=== PATIENT | female | born 1995 | race Caucasian/White ===

== ENCOUNTER 2016-08-19 10:50 | Emergency (ER) | payer OTHER ==
[~2016-08-19] VITALS: Wt 70.0 kg
[~2016-08-19 10:50] MED LIST: PREN-39 PO
[2016-08-19 11:25] LABS: URINE BLOOD (Dip) POC 1+ (NEGATIVE)
--- NOTE | 2016-08-19 12:12 | RADRPT ---
PROCEDURE: XR Abdomen CLINICAL INDICATION: Pelvic pain, IUD movement TECHNIQUE: An AP supine radiograph of the abdomen was submitted. COMPARISON: None FINDINGS: It T-shaped IUD projects fairly high within the pelvis. The bowel gas pattern is nonspecific. No organomegaly or discrete mass is identified. No pathological calcification is identified. The osseous elements appear unremarkable. IMPRESSION: 1. An IUD projects high within the pelvis. Correlation with pelvic sonography may be useful to dete rmine whether the IUD is extrauterine. 2. Otherwise, nonspecific abdomen. Physician Art Date Time Electronically viewed and signed by Physician Art on 08/19/2016 12:12 /
--- NOTE | 2016-08-19 12:27 | RADRPT ---
PROCEDURE: Pelvic Ultrasound. CLINICAL INDICATION: Pelvic pain TECHNIQUE: Sonographic evaluation of the pelvis was performed utilizing transabdominal and transva ginal technique. Curved array transabdominal transducer technique was utilized as was an endovagin al probe. Images were reviewed on the high-resolution PACS workstation. COMPARISON: No prior studies are available for comparison. FINDINGS: The uterus is normal measuring 6.1 x 3.4 x 4.6 cm in dimension. No uterine masses are identified. The endometrium is thin and normal measuring 4.4 mm. No intrauterine contraceptive device is identi fied. There is normal flow within the right ovary. The left ovary is not visualized. The right ovary is normal measuring 1.7 x 1.0 x 1.1 cm. There are no adnexal masses. No free fluid is seen. IMPRESSION: 1. Nonvisualization of the left ovary. 2. Otherwise unremarkable pelvic ultrasound. RPTAT: KK .Luciano Pang MD, Date Time Electronically viewed and signed by .Luciano Pang MD, MD on 08/19/2016 12:26 .B/
[2016-08-19] MEDS ORDERED: IBUPROFEN 600 MG TAB PO ONE (13:00)
--- NOTE | 2016-08-19 13:23 | RADRPT ---
PROCEDURE: CT Abdomen and Pelvis without contrast. CLINICAL INDICATION: Pelvic pain. TECHNIQUE: Routine tomographic images of the abdomen and pelvis were obtained from the domes of th e diaphragm to the symphysis pubis. The patient was scanned withoutoral or intravenous contrast. C oronal and sagittal reformatted images were obtained from the axial source images. Images were revie wed on a high-resolution PACS workstation. The total exam CTDI equals 16.84 mGy and the total exam D LP equals 969.22 mGy-cm. One or more of the following dose reduction techniques were used: Automat ed exposure control, adjustment of the mA and / or kV according to patient size, or use of iterative reconstruction technique. COMPARISON: Pelvic ultrasound and x-ray abdomen performed earlier on the same date FINDINGS: The visualized portions of the lung bases are clear. Evaluation of the intra-abdominal solid org ans is limited on this noncontrast examination. The liver appears normal in size. There is no intr a or extrahepatic biliary dilatation. The gallbladder is contracted. The spleen, pancreas, and adr enal glands are unremarkable. The kidneys are symmetric in size. No renal, ureteral, or bladder calculi are identified. No perine phric inflammatory changes are identified. The urinary bladder is grossly unremarkable. The bowel demonstrates normal course and caliber. There is no evidence of bowel obstruction. The appendix is normal in appearance. No intraperitoneal free fluid, free air or abscess is identified. There is an intrauterine device in the mid abdomen anteriorly. The uterus and adnexa are unremark able. The aorta is normal in caliber. No retroperitoneal, mesenteric, or inguinal lymphadenopathy is identified. The osseous structures are unremarkable. No significant subcutaneous soft tissue abnormalities are seen. IMPRESSION: 1. Extrauterine location of IUD located within the anterior mid abdomen. 2. Otherwise, unremarkable noncontrast CT of the abdomen pelvis. Findings were discussed with JOJO Iyer on 08/19/2016 1:19:35 PM. RPTAT: HH .Gena Louis MD, Date Time Electronically viewed and signed by .Gena Louis MD, on 08/19/2016 13:23 .G/
[2016-08-19] MEDS ORDERED: SOD CHLORIDE 0.9% 1,000 ML IV STA (13:28)
[2016-08-19] MEDS ORDERED: morphine 4 MG/ML VIAL IV STA (13:30)
[2016-08-19] MEDS ORDERED: ONDANSETRON 4 MG INJ IV STA (13:30)
[2016-08-19 13:54] LABS: ADD SCAN DIFF NO; BASOPHILS % 0.4 % (0.0-2.0); EOSINOPHILS % 0.8 % (0.0-7.0); HEMATOCRIT 41.1 % (37.0-47.0); HEMOGLOBIN 12.6 g/dl (12.0-16.0); LYMPHOCYTES # 2.1 10^3/ul (0.8-2.9); LYMPHOCYTES % 40.2 % (15.0-51.0); MEAN CORPUSCULAR HEMOGLOBIN 25.1 pg (29.0-33.0); MEAN CORPUSCULAR HGB CONC 30.7 g/dl (32.0-37.0); MEAN CORPUSCULAR VOLUME 81.9 fl (82.0-101.0); MEAN PLATELET VOLUME 11.8 fl (7.4-10.4); MONOCYTE # 0.3 10^3/ul (0.3-0.9); MONOCYTES % 5.5 % (0.0-11.0); NEUTROPHIL # 2.7 10^3/ul (1.6-7.5); NEUTROPHILS % 52.9 % (39.0-77.0); PLATELET COUNT 218 10^3/UL (140-415); RED BLOOD COUNT 5.02 10^6/ul (4.20-5.40); RED CELL DISTRIBUTION WIDTH 15.6 % (11.5-14.5); WHITE BLOOD COUNT 5.1 10^3/ul (4.8-10.8)
[2016-08-19 14:04] LABS: INR 0.95; PROTIME 12.7 Sec (12.2-14.2)
[2016-08-19 14:05] LABS: PARTIAL THROMBOPLASTIN TIME 30.8 Sec (25.0-35.0)
[2016-08-19 14:10] LABS: CHLORIDE 104 mmol/L (97-110)
[2016-08-19 14:11] LABS: POTASSIUM 3.8 mmol/L (3.5-5.1); SODIUM 145 mmol/L (135-144)
[2016-08-19 14:14] LABS: ANION GAP 18 (8-16); BLOOD UREA NITROGEN 10 mg/dl (7-20); CARBON DIOXIDE 27 mmol/L (21-31); CREATININE 0.65 mg/dl (0.44-1.00); GLUCOSE 91 mg/dl (70-220)
--- NOTE | 2016-08-19 14:14 | RADRPT ---
PROCEDURE: Chest Radiograph. CLINICAL INDICATION: Abdominal pain. TECHNIQUE: Single frontal chest radiograph. COMPARISON: Chest radiograph 02/13/2013 FINDINGS: The cardiomediastinal silhouette is within normal limits. No infiltrate or effusion is seen. Th e bones are intact. IMPRESSION: 1. Unremarkable chest radiograph. RPTAT: KK .Luciano Pang MD, MD Date Time Electronically viewed and signed by .Luciano Pang MD, on 08/19/2016 14:13 .B/
[2016-08-19 14:15] LABS: CALCIUM 9.3 mg/dl (8.4-10.2)
[2016-08-19 14:28] LABS: TROPONIN-I < 0.012 ng/ml (0.00-0.12)
[2016-08-19] MEDS ORDERED: ONDANSETRON 4 MG INJ IV PRN (14:30)
[2016-08-19] MEDS ORDERED: ACETAMINOPHEN 325 MG TAB PO PRN (14:30)
[2016-08-19] MEDS ORDERED: IBUP-1542 PO (14:45)
[2016-08-19] MEDS ORDERED: HYDR-906 PO (14:45)
[2016-08-19] MEDS ORDERED: ONDA4TAB14 PO (14:46)
[2016-08-19 15:00] VITALS: BP 110/65; PULSE 62; RESP 18; TEMP 98.4
--- NOTE | 2016-08-22 09:28 | ERD ---
ER Documentation Chief Complaint Date/Time DATE: 08/22/16 TIME: 09:03 Chief Complaint intermittent bleeding from iud migrated. pain for a few wks. HPI Patient is a 21 year old female who presents to the emergency department with pelvic pain. Patient states that her pain has been present for the last 3-4 weeks, however it is getting worse. Patient states her pain is episodic and crampy in nature. Patient denies any vaginal bleeding or vaginal discharge. Patient reports chills, denies any fever. Patient reports nausea, denies vomiting. Patient states that she had an IUD approximately 2 months ago. Patient states she went to her clinic where they did an ultrasound, which did not show the IUD. Patient reports irregular menstrual periods. ROS All systems reviewed and are negative except as per history of present illness. Medications Home Meds Active Scripts Ondansetron (Ondansetron Odt) 4 Mg Tab.rapdis, 4 MG PO Q6H Y for NAUSEA AND/OR VOMITING, #10 TAB Prov:RAKESH CHOI PA-C 08/19/16 Ibuprofen* (Motrin*) 600 Mg Tab, 600 MG PO Q6, #30 TAB Prov:RAKESH CHOI PA-C 08/19/16 Hydrocodone/Acetaminophen (Asher 5-325 Tablet) 1 Each Tablet, 1 TAB PO Q6H Y for PAIN, #7 TAB Prov:RAKESH CHOI PA-C 08/19/16 Reported Medications Vits W-Ca,Fe,Fa(<1MG) ( Vitamins) 1 Tab Tablet, 1 TAB PO DAILY , TAB 11/19/15 Allergies Allergies: Coded Allergies: No Known Allergy (Unverified , 01/29/16) PMhx/Soc History of Surgery: No Anesthesia Reaction: No Hx Neurological Disorder: No Hx Respiratory Disorders: No Hx Cardiac Disorders: No Hx Psychiatric Problems: No Hx Miscellaneous Medical Probl: No Hx Alcohol Use: No Hx Substance Use: No Hx Tobacco Use: No Physical Exam Vitals Vital Signs Date Time Temp Pulse Resp B/P Pulse Ox O2 Delivery O2 Flow Rate FiO2 08/19/16 15:00 98.4 62 18 110/65 100 Room Air 08/19/16 10:53 98.9 78 21 136/85 100 Physical Exam GENERAL: Well-developed, well-nourished female. Appears in no acute distress. HEAD: Normocephalic, atraumatic. EYES: Pupils are equally reactive bilaterally. EOMs grossly intact. No conjunctival erythema. ENT: Moist mucous membranes. No uvula deviation. No kissing tonsils. NECK: Supple. No lymphadenopathy or thyromegaly. No meningismus. LUNG: Clear to auscultation bilaterally. No rhonchi, wheezing, rales or coarse breath sounds. HEART: Regular rate and rhythm. No murmurs, rubs or gallops. ABDOMEN: No scars, ecchymosis or rashes noted. Soft and nondistended. Tender to palpation in lower abdomen bilaterally and suprapubic region. Positive bowel sounds in all four quadrants.~No rebound tenderness, no guarding. (-) McBurney s point tenderness. No CVA tenderness. BACK: No midline tenderness. Extremities: Equal pulses bilaterally. No peripheral clubbing, cyanosis or edema. No unilateral leg swelling. NEUROLOGIC: Alert and oriented. Moving all four extremities. 5/5 strength in all extremities. Normal speech. Steady gait. SKIN: Normal color. Warm and dry. No rashes or lesions. Result Diagram: 08/19/16 1342 08/19/16 1342 Results 24 hrs Laboratory Tests Test 08/19/16 11:23 08/19/16 13:42 Bedside Urine Blood 1+ Bedside Urine Glucose (UA) Negative Bedside Urine Ketones (LAB) Negative Bedside Urine Leukocyte Esterase (L Negative Bedside Urine Nitrite (LAB) Negative Bedside Urine Protein (LAB) Negative Bedside Urine pH (LAB) 7.5 Activated Partial Thromboplast Time 30.8Sec Anion Gap 18 Basophils # 0.010^3/ul Basophils % 0.4% Blood Urea Nitrogen 10mg/dl Calcium Level 9.3mg/dl Carbon Dioxide Level 27mmol/L Chloride Level 104mmol/L Creatinine 0.65mg/dl Eosinophils # 0.010^3/ul Eosinophils % 0.8% Glucose Level 91mg/dl Hematocrit 41.1% Hemoglobin 12.6g/dl INR International Normalized Ratio 0.95 Lymphocytes # 2.110^3/ul Lymphocytes % 40.2% Mean Corpuscular Hemoglobin 25.1pg Mean Corpuscular Hemoglobin Concent 30.7g/dl Mean Corpuscular Volume 81.9fl Mean Platelet Volume 11.8fl Monocytes # 0.310^3/ul Monocytes % 5.5% Neutrophils # 2.710^3/ul Neutrophils % 52.9% Nucleated Red Blood Cells # 0.010^3/ul Nucleated Red Blood Cells % 0.0/100WBC Platelet Count 64251^3/UL Potassium Level 3.8mmol/L Prothrombin Time 12.7Sec Prothrombin Time Ratio 1.0 Red Blood Count 5.0210^6/ul Red Cell Distribution Width 15.6% Sodium Level 145mmol/L Troponin I < 0.012ng/ml White Blood Count 5.110^3/ul Current Medications Medications (Trade) Dose Ordered Sig/Ji Route PRN Reason Start Time Stop Time Status Last Admin Dose Admin Ibuprofen 600 mg 600 mg ONCE ONCE PO 08/19/16 13:00 08/19/16 13:01 DC 08/19/16 12:44 Sodium Chloride (NS) 1,000 ml @ 1,000 mls/hr Q1H STAT IV 08/19/16 13:28 08/19/16 14:27 DC 08/19/16 13:55 Ondansetron HCl (Zofran Inj) 4 mg ONCE STAT IV 08/19/16 13:30 08/19/16 13:32 DC 08/19/16 13:55 Morphine Sulfate (morphine) 4 mg ONCE STAT IV 08/19/16 13:30 08/19/16 13:32 DC 08/19/16 13:55 Ondansetron HCl (Zofran Inj) 4 mg BRIDGE ORDER PRN IV NAUSEA AND/OR VOMITING 08/19/16 14:30 08/19/16 15:35 DC Acetaminophen (Tylenol Tab) 650 mg ER BRIDGE PRN PO MILD PAIN/FEVER 08/19/16 14:30 08/19/16 15:35 DC Procedures/MDM ED COURSE: The patient was stable throughout ED course. I kept the patient and/or family informed of laboratory and diagnostic imaging results throughout the ED course. EKG: Read by Dr. Restrepo, attending physician. EKG shows normal sinus rhythm at a rate of 70 bpm No arrhythmias, acute ST elevations or T wave changes were noted. DIAGNOSTIC IMAGING: Read by radiologist. Patient: DIAN CABRERA : 1995 Age: 21 Sex: F MR #: [id number] DOS: 08/19/16 1107 Ordering MD: RAKESH CHOI PA-C Location: [facility] Room/Bed: PROCEDURE: Pelvic Ultrasound. CLINICAL INDICATION: Pelvic pain TECHNIQUE: Sonographic evaluation of the pelvis was performed utilizing transabdominal and transvaginal technique. Curved array transabdominal transducer technique was utilized as was an endovaginal probe. Images were reviewed on the high-resolution PACS workstation. COMPARISON: No prior studies are available for comparison. FINDINGS: The uterus is normal measuring 6.1 x 3.4 x 4.6 cm in dimension. No uterine masses are identified. The endometrium is thin and normal measuring 4.4 mm. No intrauterine contraceptive device is identified. There is normal flow within the right ovary. The left ovary is not visualized. The right ovary is normal measuring 1.7 x 1.0 x 1.1 cm. There are no adnexal masses. No free fluid is seen. IMPRESSION: 1. Nonvisualization of the left ovary. 2. Otherwise unremarkable pelvic ultrasound. RPTAT: KK .Luciano Pang MD, MD Date Time Electronically viewed and signed by .Luciano Pang MD, MD on 2016 12:26 Patient: DIAN CABRERA : 1995 Age: 21 Sex: F MR #: [id number] DOS: 08/19/16 1107 Ordering MD: RAKESH CHOI PA-C Location: [facility] Room/Bed: PROCEDURE: XR Abdomen CLINICAL INDICATION: Pelvic pain, IUD movement TECHNIQUE: An AP supine radiograph of the abdomen was submitted. COMPARISON: None FINDINGS: It T-shaped IUD projects fairly high within the pelvis. The bowel gas pattern is nonspecific. No organomegaly or discrete mass is identified. No pathological calcification is identified. The osseous elements appear unremarkable. IMPRESSION: 1. An IUD projects high within the pelvis. Correlation with pelvic sonography may be useful to determine whether the IUD is extrauterine. 2. Otherwise, nonspecific abdomen. Physician Art Date Time Electronically viewed and signed by Physician Art on 08/19/2016 12:12 RH/ CC: RAKESH CHOI PA-C Patient: DIAN CABRERA : 1995 Age: 21 Sex: F MR #: [id number] DOS: 08/19/16 1241 Ordering MD: RAKESH CHOI PA-C Location: [facility] Room/Bed: PROCEDURE: CT Abdomen and Pelvis without contrast. CLINICAL INDICATION: Pelvic pain. TECHNIQUE: Routine tomographic images of the abdomen and pelvis were obtained from the domes of the diaphragm to the symphysis pubis. The patient was scanned withoutoral or intravenous contrast. Coronal and sagittal reformatted images were obtained from the axial source images. Images were reviewed on a high-resolution PACS workstation. The total exam CTDI equals 16.84 mGy and the total exam DLP equals 969.22 mGy-cm. One or more of the following dose reduction techniques were used: Automated exposure control, adjustment of the mA and / or kV according to patient size, or use of iterative reconstruction technique. COMPARISON: Pelvic ultrasound and x-ray abdomen performed earlier on the same date FINDINGS: The visualized portions of the lung bases are clear. Evaluation of the intra -abdominal solid organs is limited on this noncontrast examination. The liver appears normal in size. There is no intra or extrahepatic biliary dilatation. The gallbladder is contracted. The spleen, pancreas, and adrenal glands are unremarkable. The kidneys are symmetric in size. No renal, ureteral, or bladder calculi are identified. No perinephric inflammatory changes are identified. The urinary bladder is grossly unremarkable. The bowel demonstrates normal course and caliber. There is no evidence of bowel obstruction. The appendix is normal in appearance. No intraperitoneal free fluid, free air or abscess is identified. There is an intrauterine device in the mid abdomen anteriorly. The uterus and adnexa are unremarkable. The aorta is normal in caliber. No retroperitoneal, mesenteric, or inguinal lymphadenopathy is identified. The osseous structures are unremarkable. No significant subcutaneous soft tissue abnormalities are seen. IMPRESSION: 1. Extrauterine location of IUD located within the anterior mid abdomen. 2. Otherwise, unremarkable noncontrast CT of the abdomen pelvis. Findings were discussed with JOJO Iyer on 08/19/2016 1:19:35 PM. RPTAT: HH .Gena Louis MD, Date Time Electronically viewed and signed by .Gena Louis MD, MD on 08/19/2016 13 :23 .G/ CC: RAKESH CHOI PA-C Patient: DIAN CABRERA : 1995 Age: 21 Sex: F MR #: [id number] DOS: 08/19/16 1328 Ordering MD: EMERY RESTREPO MD Location: [facility] Room/Bed: PROCEDURE: Chest Radiograph. CLINICAL INDICATION: Abdominal pain. TECHNIQUE: Single frontal chest radiograph. COMPARISON: Chest radiograph 02/13/2013 FINDINGS: The cardiomediastinal silhouette is within normal limits. No infiltrate or effusion is seen. The bones are intact. IMPRESSION: 1. Unremarkable chest radiograph. RPTAT: KK .Luciano Pang MD, Date Time Electronically viewed and signed by .Luciano Pang MD, MD on 2016 14:13 .B/ . PROCEDURES: None. MEDICATIONS GIVEN: Ibuprofen, IV fluids, Morphine, Zofran, Tylenol Patient tolerated medication well with no adverse reactions. Patient reported improvement in pain. MEDICAL DECISION MAKING: This is a 21 year old female who presents with pelvic pain and displacement of IUD. Vital signs were reviewed. Patient was afebrile. Patient was not hypoxic. CBC showed no evidence of systemic infection or severe anemia. BMP showed no severe electrolyte disturbances or kidney failure. Urine dip was negative for acute infection. Urine was negative. Pelvic US was negative, IUD was noted. Abdominal XR showed an IUD projects high within the pelvis. Correlation with pelvic sonography may be useful to determine whether the IUD is extrauterine. Given that IUD was not found on pelvic US, a CT scan was obtained. CT abdomen and pelvis showed extrauterine location of IUD located within the anterior mid abdomen. Given these findings, I discussed the patient' s case with my supervising physician, Dr. Restrepo. Dr. Restrepo contacted Dr. Herring per the request of the laborist analytics consultant given that Dr. Herring manages patients at the [facility]. Dr. Herring was consulted and examined the patient. At this time, Dr. Herring does not feel the need for emergent surgical removal of IUD. Patient was advised to follow up with Dr. Herring on 08/22/16, at the [facility]. Patient will likely undergo surgical removal of IUD on an outpatient basis. Given these findings, the patients presentation is most consistent with pelvic pain secondary to displaced IUD. I have a much lower clinical concern for ectopic , ovarian torsion, PID, tubo-ovarian abscess, fibroids, endometriosis, vulvovaginitis, nephrolithiasis, pyelonephritis, UTI, appendicitis, diverticulitis, bowel obstruction, bowel perforation, bladder perforation, perirectal abscess. PRESCRIPTIONS: Asher Ibuprofen Zofran DISCHARGE: At this time, patient is stable for discharge and outpatient management. My supervising physician, Dr. Restrepo, agrees with the patient's diagnosis and disposition at this time. I have instructed the patient to follow-up with Dr. Herring on 08/22/16. I have discussed with the patient the possibility of needing to see a specialist for further workup and diagnostic studies if the pain persists. I have instructed the patient to promptly return to the ER at any time for any new or worsening symptoms including increased pain , nausea, vomiting, vaginal bleeding, weakness or fever. The patient and/or family expressed understanding of and agreement with this plan. All questions were answered. Home care instructions were provided. Departure Diagnosis: Primary Impression: Pelvic pain Additional Impression: IUD complication Device complication type: mechanical Mechanical complication type: displacement Encounter type: initial encounter Qualified Code: T83.32XA - Displacement of intrauterine contraceptive device, initial encounter Patient Instructions: Pelvic Pain, Unknown Cause Referrals: [facility] ([facility]) [facility] YOU HAVE RECEIVED A MEDICAL SCREENING EXAM AND THE RESULTS INDICATE THAT YOU DO NOT HAVE A CONDITION THAT REQUIRES URGENT TREATMENT IN THE EMERGENCY DEPARTMENT. FURTHER EVALUATION AND TREATMENT OF YOUR CONDITION CAN WAIT UNTIL YOU ARE SEEN IN YOUR DOCTORS OFFICE WITHIN THE NEXT 1-2 DAYS. IT IS YOUR RESPONSIBILITY TO MAKE AN APPOINTMENT FOR FOLOW-UP CARE. IF YOU HAVE A PRIMARY DOCTOR --you should call your primary doctor and schedule an appointment IF YOU DO NOT HAVE A PRIMARY DOCTOR YOU CAN CALL OUR PHYSICIAN REFERRAL HOTLINE AT IF YOU CAN NOT AFFORD TO SEE A PHYSICIAN YOU CAN CHOSE FROM THE FOLLOWING [facility] [address] [facility] [address] [address] [facility] [address] [facility] [address] [facility] [address] [facility]. [facility]. [address] [facility] [facility] YOU HAVE RECEIVED A MEDICAL SCREENING EXAM AND THE RESULTS INDICATE THAT YOU DO NOT HAVE A CONDITION THAT REQUIRES URGENT TREATMENT IN THE EMERGENCY DEPARTMENT. FURTHER EVALUATION AND TREATMENT OF YOUR CONDITION CAN WAIT UNTIL YOU ARE SEEN IN YOUR DOCTORS OFFICE WITHIN THE NEXT 1-2 DAYS. IT IS YOUR RESPONSIBILITY TO MAKE AN APPOINTMENT FOR FOLOW-UP CARE. IF YOU HAVE A PRIMARY DOCTOR --you should call your primary doctor and schedule and appointment IF YOU DO NOT HAVE A PRIMARY DOCTOR YOU CAN CALL OUR PHYSICIAN REFERRAL HOTLINE AT . IF YOU CAN NOT AFFORD TO SEE A PHYSICIAN YOU CAN CHOSE FROM THE FOLLOWING [facility] INSTITUTIONS: [facility] [address] [place] [address] [facility] [address] [place] [address] [facility] [address] [place] [address] [employer] RECEIVABLE ASSISTANT [place] [address] [facility] [address] [place] [address] OFFICE FAX , [facility] [address] [place] [address] [address] LANGFORD, [place] [address] [place] [address] [address] MORROW, [facility] [address] [facility], [address], [facility] [address] [address] JEFFREY, [facility] [address] [place] [address] [facility] [address] [place] [address] [phone] [facility] [address] - TESSIE CHRISTIAN [address] [facility], [place] [address] [address] DE LEON, [place] [address] [facility]. [address], [place] [address] [address] [facility] [address] [place], [place] [id number] Additional Instructions: Follow-up with the [facility] on Monday. Advised him that you saw Dr. Herring here in the emergency department and he advised to to follow- up with him. She will need surgical removal of her IUD on an outpatient basis. RAKESH CHOI PA-C Aug 22, 2016 09:13
== END 2016-08-19 15:00 | disposition home or self-care (01) ==
LOC: FTE 10:50
DX: R10.2 Pelvic and perineal pain (principal); T83.32XA Displacement of intrauterine contraceptive device, initial encounter; R11.0 Nausea; Y82.8 Other medical devices associated with adverse incidents
CPT/HCPCS: 71010; 74000; 74176; 76830; 76856; 80048; 81003; 84484; 85025; 85610; 85730; 93005; J2270; J2405; J7030; Z7610; 36415; 96361; 96374; 96375

== ENCOUNTER 2016-08-24 13:17 | Inpatient (IN) | payer OTHER ==
[~2016-08-24] VITALS: Ht 162.6 cm; Wt 85.6 kg
[~2016-08-24 13:17] MED LIST changes: +HYDR-906 PO; +IBUP-1542 PO; +ONDA4TAB14 PO
[2016-08-24] MEDS ORDERED: SOD CHLORIDE 0.9% 1,000 ML IV STA (15:47)
[2016-08-24] MEDS ORDERED: morphine 4 MG/ML VIAL IV STA (15:47)
[2016-08-24] MEDS ORDERED: ONDANSETRON 4 MG INJ IV STA (15:47)
[2016-08-24 16:11] LABS: ADD SCAN DIFF NO
[2016-08-24 16:13] LABS: BASOPHILS % 0.2 % (0.0-2.0); EOSINOPHILS # 0.1 10^3/ul (0.0-0.5); EOSINOPHILS % 1.1 % (0.0-7.0); HEMATOCRIT 42.4 % (37.0-47.0); LYMPHOCYTES # 1.8 10^3/ul (0.8-2.9); LYMPHOCYTES % 32.2 % (15.0-51.0); MEAN CORPUSCULAR HEMOGLOBIN 25.2 pg (29.0-33.0); MEAN CORPUSCULAR HGB CONC 30.7 g/dl (32.0-37.0); MEAN CORPUSCULAR VOLUME 82.2 fl (82.0-101.0); MEAN PLATELET VOLUME 11.9 fl (7.4-10.4); MONOCYTE # 0.4 10^3/ul (0.3-0.9); NEUTROPHIL # 3.4 10^3/ul (1.6-7.5); NEUTROPHILS % 59.5 % (39.0-77.0); PLATELET COUNT 239 10^3/UL (140-415); RED BLOOD COUNT 5.16 10^6/ul (4.20-5.40); RED CELL DISTRIBUTION WIDTH 15.1 % (11.5-14.5); WHITE BLOOD COUNT 5.7 10^3/ul (4.8-10.8)
--- NOTE | 2016-08-24 16:16 | RADRPT ---
PROCEDURE: XR Chest. CLINICAL INDICATION: chest pain, abdominal pain TECHNIQUE: Single frontal view of the chest was obtained COMPARISON: 08/19/16 FINDINGS: The heart and mediastinum are within normal limits. The lungs are clear. There is no pleural effusion or pneumothorax. RPTAT: AA IMPRESSION: No acute disease. .Yash Yañez MD, MD Date Time Electronically viewed and signed by .Yash Yañez MD, on 08/24/2016 16:16 .S/
[2016-08-24 16:25] LABS: INR 0.91; PARTIAL THROMBOPLASTIN TIME 29.5 Sec (25.0-35.0); PROTIME 12.2 Sec (12.2-14.2)
[2016-08-24] MEDS ORDERED: ACETAMINOPHEN 325 MG TAB PO PRN ×2 (16:30→17:00)
[2016-08-24 16:49] LABS: CHLORIDE 104 mmol/L (97-110)
[2016-08-24 16:50] LABS: POTASSIUM 4.2 mmol/L (3.5-5.1); SODIUM 145 mmol/L (135-144)
[2016-08-24 16:52] LABS: ANION GAP 17 (8-16); CARBON DIOXIDE 28 mmol/L (21-31); CREATININE 0.65 mg/dl (0.44-1.00)
[2016-08-24 16:53] LABS: BLOOD UREA NITROGEN 8 mg/dl (7-20); CALCIUM 9.2 mg/dl (8.4-10.2); GLUCOSE 84 mg/dl (70-220)
[2016-08-24] MEDS ORDERED: ONDANSETRON 4 MG INJ IV PRN (17:00)
[2016-08-24] MEDS ORDERED: HYDROCODONE/APAP (5/325) TAB PO PRN (17:00)
[2016-08-24] MEDS ORDERED: NACL 0.9% 3 ML SYG IV SCH (17:00)
[2016-08-24 17:08] LABS: TROPONIN-I < 0.012 ng/ml (0.00-0.12)
--- NOTE | 2016-08-24 18:26 | ERA ---
ER Documentation Chief Complaint Date/Time DATE: 08/24/16 TIME: 18:23 Chief Complaint pelvic pain, here last monday HPI Patient is a 21-year-old female with no medical problems who presents with abdominal pain. She says that her abdominal pain has been worsening since April but was worse over the past 1 week. She has had no fevers. She tried ibuprofen and [place]. She was seen here on August 19 in the emergency department and was diagnosed with a IUD which was outside of the uterus and was intraperitoneal. She was seen by OB on that day and the decision was made to manage as an outpatient with elective surgery. Patient went to her clinic on Monday but unfortunately given insurance issues she is having trouble getting seen by a surgeon. ROS All systems reviewed and are negative except as per history of present illness. Medications Home Meds Discontinued Reported Medications Vits W-Ca,Fe,Fa(<1MG) ( Vitamins) 1 Tab Tablet, 1 TAB PO DAILY , TAB 11/19/15 Discontinued Scripts Ondansetron (Ondansetron Odt) 4 Mg Tab.rapdis, 4 MG PO Q6H Y for NAUSEA AND/OR VOMITING, #10 TAB Prov:RAKESH CHOI-C 08/19/16 Ibuprofen* (Motrin*) 600 Mg Tab, 600 MG PO Q6, #30 TAB Prov:RAKESH CHOI-C 08/19/16 Hydrocodone/Acetaminophen ([place] 5-325 Tablet) 1 Each Tablet, 1 TAB PO Q6H Y for PAIN, #7 TAB Prov:RAKESH CHOI-C 08/19/16 Allergies Allergies: Coded Allergies: No Known Allergy (Unverified , 08/24/16) PMhx/Soc Medical and Surgical Hx: pt denies Medical Hx History of Surgery: No Anesthesia Reaction: No Hx Neurological Disorder: No Hx Respiratory Disorders: No Hx Cardiac Disorders: No Hx Psychiatric Problems: No Hx Miscellaneous Medical Probl: No Hx Alcohol Use: No Hx Substance Use: No Hx Tobacco Use: No Smoking Status: Never smoker FmHx Family History: No diabetes Physical Exam Vitals Vital Signs Date Time Temp Pulse Resp B/P Pulse Ox O2 Delivery O2 Flow Rate FiO2 08/24/16 18:06 98.0 71 18 116/62 99 Room Air 08/24/16 13:34 98.1 82 18 128/82 99 Physical Exam Const: Mild distress secondary to pain Head: Atraumatic Eyes: Normal Conjunctiva ENT: Normal External Ears, Nose and Mouth. Neck: Full range of motion..~ No meningismus. Resp: Clear to auscultation bilaterally Cardio: Regular rate and rhythm, no murmurs Abd: Soft, diffuse tenderness to palpation without rebound or guarding Skin: No petechiae or rashes Back: No midline or flank tenderness Ext: No cyanosis, or edema Neur: Awake and alert Psych: Normal Mood and Affect Result Diagram: 08/24/16 1255 08/24/16 1255 Results 24 hrs Laboratory Tests Test 08/24/16 12:55 White Blood Count 5.710^3/ul Red Blood Count 5.1610^6/ul Hemoglobin 13.0g/dl Hematocrit 42.4% Mean Corpuscular Volume 82.2fl Mean Corpuscular Hemoglobin 25.2pg Mean Corpuscular Hemoglobin Concent 30.7g/dl Red Cell Distribution Width 15.1% Platelet Count 21105^3/UL Mean Platelet Volume 11.9fl Neutrophils % 59.5% Lymphocytes % 32.2% Monocytes % 7.0% Eosinophils % 1.1% Basophils % 0.2% Nucleated Red Blood Cells % 0.0/100WBC Neutrophils # 3.410^3/ul Lymphocytes # 1.810^3/ul Monocytes # 0.410^3/ul Eosinophils # 0.110^3/ul Basophils # 0.010^3/ul Nucleated Red Blood Cells # 0.010^3/ul Prothrombin Time 12.2Sec Prothrombin Time Ratio 1.0 INR International Normalized Ratio 0.91 Activated Partial Thromboplast Time 29.5Sec Sodium Level 145mmol/L Potassium Level 4.2mmol/L Chloride Level 104mmol/L Carbon Dioxide Level 28mmol/L Anion Gap 17 Blood Urea Nitrogen 8mg/dl Creatinine 0.65mg/dl Glucose Level 84mg/dl Calcium Level 9.2mg/dl Troponin I < 0.012ng/ml Current Medications Medications (Trade) Dose Ordered Sig/Ji Route PRN Reason Start Time Stop Time Status Last Admin Dose Admin Sodium Chloride (NS) 1,000 ml @ 1,000 mls/hr Q1H STAT IV 08/24/16 15:47 08/24/16 16:46 DC 08/24/16 16:22 Morphine Sulfate (morphine) 4 mg ONCE STAT IV 08/24/16 15:47 08/24/16 15:49 DC 08/24/16 16:22 Ondansetron HCl (Zofran Inj) 4 mg ONCE STAT IV 08/24/16 15:47 08/24/16 15:49 DC 08/24/16 16:22 Ondansetron HCl (Zofran Inj) 4 mg BRIDGE ORDER PRN IV NAUSEA AND/OR VOMITING 08/24/16 16:30 08/25/16 16:29 Acetaminophen 650 mg 650 mg ER BRIDGE PRN PO MILD PAIN/FEVER 08/24/16 16:30 08/25/16 16:29 08/24/16 16:21 Potassium Chloride/Dextrose/ Sod Cl (D5-1/2ns + KCl 20 Meq) 1,000 ml @ 100 mls/hr Q10H IV 08/24/16 16:48 IV Flush (NS 3 ml) 3 ml PER PROTOCOL IV 08/24/16 17:00 Ondansetron HCl (Zofran Inj) 4 mg Q6H PRN IV NAUSEA AND/OR VOMITING 08/24/16 17:00 Acetaminophen (Tylenol Tab) 650 mg Q6H PRN PO PAIN LEVEL 1-3 OR FEVER 08/24/16 17:00 Acetaminophen/ Hydrocodone Bitart ([place] (5/325)) 1 tab Q6H PRN PO MODERATE PAIN LEVEL 4-6 08/24/16 17:00 Morphine Sulfate (morphine) 2 mg Q4H PRN IV SEVERE PAIN LEVEL 7-10 08/24/16 17:00 Famotidine (Pepcid Iv) 20 mg Q12 IV 08/24/16 21:00 Procedures/MDM Chest x-ray negative per radiology. EKG read by me: Rate/Rhythm: Regular rate and rhythm at a normal rate Intervals: Normal Impression: No evidence of ischemia or arrhythmia Patient is a 21-year-old male with no medical problems who presents with abdominal pain. The patient has had worsening abdominal pain over the past week and does have an extrauterine IUD that was seen on CT scan on August 19. At that time she was determined to be stable for outpatient management and elective surgery however her pain is worsened and she is unable to see a surgeon as an outpatient given her insurance issues. The patient therefore requires admission for surgical removal of her IUD. I spoke with Dr. Herring from OB who says that this is outside of his expertise and recommended consultation with general surgery. I spoke with Dr. Patterson who is a surgeon on- call for general surgery who will see the patient in consultation for removal. I spoke with Dr. Kim for admission to a medical surgical bed. Preoperative laboratory studies as well as chest x-ray and EKG were done for presurgical testing. Departure Diagnosis: Primary Impression: IUD complication Qualified Code: T83.32XD - Displacement of intrauterine contraceptive device, subsequent encounter Additional Impression: Abdominal pain Qualified Code: R10.84 - Generalized abdominal pain Condition: EMERY Sepulveda MD Aug 24, 2016 18:26
--- NOTE | 2016-08-24 19:54 | HP ---
DATE OF ADMISSION: 08/24/2016 TIME OF EVALUATION: 1700 REASON FOR ADMISSION: Abdominal pain. RAZOR SHARPENER: Dr. Antonio Patterson, General Surgery HISTORY OF PRESENT ILLNESS: This is a 21-year-old female with no significant past medical history who came to the emergency room with chief complaint of abdominal pain. The patient was last being seen at [facility] Emergency Room on 08/19/2016 with abdominal pain. At that time, the patient underwent a CT scan of the abdomen and pelvis that showed extrauterine location of intrauterine device within the anterior mid abdomen. At that time, the patient was discharged home on analgesics to be followed up with outpatient MEDICINE WORKER for removal of the IUD. Nevertheless, the patient had problems with getting to see a surgeon/MEDICINE WORKER because of insurance restrictions. Hence, the patient came back to the hospital on 08/24/2016 with similar complaints but worsening pain. The patient verbalized her pain as mid abdominal with radiation to the back rated at 8/10. The patient tried [place] and ibuprofen with minimal relief. The patient was also complaining of vaginal spotting. The patient was complaining of nausea. The patient denied any vomiting. She denied any chest pain, shortness of breath or palpitations. She denied any bowel or bladder irregularities. In the emergency room, the patient was seen by the ER physician, and the ER physician consulted the GARBAGE COLLECTOR SUPERVISOR manager of administration, and GARBAGE COLLECTOR SUPERVISOR recommended general surgery consultation. Therefore, the patient will be admitted to inpatient setting for further evaluation including general surgery consultation. Of note, the last time the patient visited the ER on 08/19/2016, the patient was seen by GARBAGE COLLECTOR SUPERVISOR and recommended outpatient followup with surgeon/GARBAGE COLLECTOR SUPERVISOR. PAST MEDICAL HISTORY: Denies. PAST SURGICAL HISTORY: Denies. HOME MEDICATIONS: None. ALLERGIES: NO KNOWN DRUG ALLERGIES. SOCIAL HISTORY: The patient lives at home with her family. The patient has 2 kids. No history of alcohol, tobacco or illicit drug use. REVIEW OF SYSTEMS: A 12-point review of systems were made, and the review of systems is negative other than what is mentioned in the history of present illness. PHYSICAL EXAMINATION: VITAL SIGNS: Temperature 98.1, pulse rate 82, respiratory rate 18, blood pressure 128/82, oxygen saturation 99% on room air. GENERAL: This is an obese female lying in bed in no apparent distress. HEENT: Head normocephalic and atraumatic. Eyes: Anicteric sclerae. Conjunctivae clear. ENT: Nasal septum is midline. Oral mucosa is dry. NECK: Supple. No JVD noticed. RESPIRATORY: Bilaterally clear to auscultation. No adventitious breath sounds heard. No use of accessory muscles of respiration. CARDIAC: Regular rate and rhythm. No murmurs heard. ABDOMEN: Soft. Tenderness to palpation in the periumbilical area. Bowel sounds are positive in all 4 quadrants. GENITOURINARY: Deferred. EXTREMITIES: No cyanosis, no clubbing, no edema. Peripheral pulses palpable. NEUROLOGIC: The patient is awake, alert and oriented. Cranial nerves are grossly intact. SKIN: No skin rash. Normal skin turgor. LABORATORY AND DIAGNOSTIC DATA: PT 12.2, INR 0.91, APTT 29.5. WBC 5.7, hemoglobin 13.9, hematocrit 42.4, platelet count 239. Chest x-ray: No acute intrathoracic findings. CT scan of the abdomen and pelvis on 08/19/2016: Extrauterine location of IUD located within the anterior mid abdomen. IMPRESSION: This is a 21-year-old female who is returning back with abdominal pain most probably secondary to displaced intrauterine device who will be admitted here for further treatment and evaluation. ASSESSMENT AND PLAN: 1. Abdominal pain with CT evidence of displaced intrauterine device. The patient will be provided with adequate pain control. The patient will be kept n.p.o. Surgical evaluation has been sought. 2. Obesity. Body mass index of 35.9 kg/meter squared. Weight reduction will be advised. A fasting lipid panel and a hemoglobin A1c will be obtained. Plan. The patient will be admitted to inpatient medical/surgical floor. The patient will remain a FULL CODE. The patient will be started on DVT prophylaxis and gastrointestinal prophylaxis. The patient will be maintained n.p.o. except for medications. Activities will be as tolerated. The rest of the patient's management will be based on the clinical course, the results of diagnostic studies and inputs from consultants. Based on the patient's clinical presentation, she most probably requires at least 2-midnights' stay for further management and evaluation of her clinical presentation. The case and management of this patient was fully discussed with Dr. Blum. PRASAD BLUM MD, AM/SHANELL Conf#: [id number] DID#: [id number] MTDD
--- NOTE | 2016-08-24 20:10 | CONS ---
[facility] INITIAL INPATIENT CONSULTATION NOTE DATE OF CONSULTATION: 08/24/2016 PLACE OF SERVICE: [facility] Emergency Department. IMPRESSION AND PLAN: A very pleasant 21-year-old otherwise healthy young lady with comorbidity of body mass index 35.9 who appears to have had a complication of intrauterine device perforation through the uterus and intra-abdominal presence of this device. This appears to be a copper device as evidenced by the CT findings. My recommendation is for the patient to undergo a diagnostic laparoscopy with retrieval of the device since these devices usually generate a low-grade inflammatory response around them and eventually could potentially cause bowel obstruction and perforation. I explained all of this to the patient including the operation in detail as well as the risks, benefits and alternatives and answered all her questions. I believe that the patient appears to understand and agrees to proceed with the above plan. With the above assessment, I have recommended the followin. Admit patient. 2. N.p.o. after midnight. 3. To the operating room tomorrow for laparoscopic retrieval of intra- abdominal intrauterine device. Thank you again for allowing us to participate in the care of this very pleasant young lady and I am certain her wonderful family. If there are any questions, please feel free to call me at [phone]. TOTAL VISIT TIME: 45 minutes, of which more than half was spent in face-to- face discussion with the patient as well as coordination of care between multiple physicians and providers. UPDATED CLINICAL SUMMARY: A very pleasant 21-year-old lady with comorbidity of a BMI of 35.9, status post placement of an IUD device about 2 months ago that appeared to have penetrated through the uterus and was present on the CT scan that was obtained due to abdominal pain on 08/19/2016, to be in an extrauterine location within the anterior mid abdomen. COMORBIDITIES: 1. BMI 35.9. 2. Status post IUD placement 06/2016 with complication of intraperitoneal position, indicating perforation through the uterus DATE OF ADMISSION: 08/24/2016 HISTORY OF PRESENT ILLNESS: The patient is a very pleasant and otherwise healthy 21-year-old young lady who we were kindly asked to consult regarding management of an intra-abdominal position of the intrauterine device that reportedly was placed 06/2016. The patient herself has had abdominal pain and was evaluated on 08/19/2016 at our emergency department. She was found to have an intra-abdominal placement of the intrauterine device, and the recommendation was made for an elective operation to retrieve the device. She returned on with more abdominal discomfort, and after discussions with SOLE CEMENTER, a recommendation was made to have a general surgery consultation. I was kindly asked to consult. On my visit, the patient did not have any major complaints but had some minor abdominal discomfort, mainly in the mid to lower abdominal quadrant. She didn't report any nausea or vomiting, no fevers or chills, and no nausea, no diarrhea or other problems including blood in the stool or urine. ALLERGIES: NO KNOWN DRUG ALLERGIES. HOME MEDICATIONS: None. SOCIAL HISTORY: The patient does not report any major smoking, drinking or intravenous drug abuse. FAMILY HISTORY: No major reported medical, surgical or oncologic problems in the family. REVIEW OF SYSTEMS: Other than the above mentioned, there are no other pertinent positives or pertinent negatives in a complete 14-point review of systems. PHYSICAL EXAMINATION: GENERAL: The patient appears to be a very pleasant lady of descent, appearing stated age, lying in bed comfortably and in no acute distress. VITAL SIGNS: She is afebrile, and her vital signs are stable. HEENT: Normocephalic and atraumatic. Extraocular muscles and hearing are grossly intact bilaterally and symmetrically. Sclerae are nonicteric. Oral cavity is clear; oral mucosa appeared to be pink and moist. Dentition: good. NECK: Supple. There is no lymphadenopathy or JVD. There is no submental, submandibular or supraclavicular lymphadenopathy. CHEST: Rises symmetrically with each breath; patient is breathing comfortably. There are no audible wheezes, rales or rhonchi on the gross exam. HEART: Pulse is regular and palpable on the right wrist. Capillary refill was normal. Carotid pulses are palpable bilaterally and symmetrically in the neck. EXTREMITIES: Lower extremities contain no pitting edema around the ankles bilaterally and symmetrically. ABDOMEN: Abdomen is soft, nontender and nondistended. There are no peritoneal signs or guarding. No evidence of ascites, organomegaly, caput medusae, engorged subcutaneous veins, or other abnormalities. SKIN: Appears to be pink and feels warm to touch. NEUROLOGIC: Awake, alert, and follows commands appropriately. LABORATORY VALUES: CBC is normal with platelet count of 239. Electrolytes are also normal. CO2 is 28. INR 0.91. IMAGING: Reviewed above. Note that I personally reviewed all the available images, and I agree in general with the overall reported findings. Dictated By: WILMER BELTRAN/SHANELL Conf#: [id number] DID#: [id number] MTDD
[2016-08-24] MEDS: morphine 2 MG INJ IV PRN (20:34)
[2016-08-24] MEDS: FAMOTIDINE 20 MG INJ IV SCH (20:34)
[2016-08-24] MEDS: D5W-0.45 NACL + KCL 20 MEQ 1,000 ML IV SCH (22:51)
[2016-08-25] VITALS (14 sets, daily range): BP systolic 72–111; BP diastolic 50–108; PULSE 60–70; RESP 12–24; TEMP 98.3; Ht 162.6 cm; Wt 85.6 kg
[2016-08-25] MEDS: ONDANSETRON 4 MG INJ IV PRN ×2 (00:22→07:43)
[2016-08-25] MEDS: morphine 2 MG INJ IV PRN ×3 (00:22→13:22)
[2016-08-25] MEDS: D5W-0.45 NACL + KCL 20 MEQ 1,000 ML IV SCH ×3 (02:28→12:48)
[2016-08-25 05:54] LABS: ADD SCAN DIFF NO
[2016-08-25 06:01] LABS: BASOPHILS % 0.2 % (0.0-2.0); EOSINOPHILS # 0.1 10^3/ul (0.0-0.5); EOSINOPHILS % 1.5 % (0.0-7.0); HEMATOCRIT 36.1 % (37.0-47.0); HEMOGLOBIN 11.2 g/dl (12.0-16.0); LYMPHOCYTES # 2.6 10^3/ul (0.8-2.9); LYMPHOCYTES % 47.9 % (15.0-51.0); MEAN CORPUSCULAR HEMOGLOBIN 25.5 pg (29.0-33.0); MONOCYTE # 0.4 10^3/ul (0.3-0.9); MONOCYTES % 7.3 % (0.0-11.0); NEUTROPHIL # 2.3 10^3/ul (1.6-7.5); NEUTROPHILS % 42.9 % (39.0-77.0); PLATELET COUNT 190 10^3/UL (140-415); WHITE BLOOD COUNT 5.3 10^3/ul (4.8-10.8)
[2016-08-25 06:31] LABS: ALBUMIN 3.3 g/dl (3.3-4.9)
[2016-08-25 06:32] LABS: POTASSIUM 4.1 mmol/L (3.5-5.1)
[2016-08-25 06:34] LABS: ALBUMIN/GLOBULIN RATIO 1.13; CREATININE 0.88 mg/dl (0.44-1.00); TOTAL PROTEIN 6.2 g/dl (6.1-8.1)
[2016-08-25 06:35] LABS: CALCIUM 8.2 mg/dl (8.4-10.2)
[2016-08-25 07:19] LABS: MAGNESIUM 2.1 mg/dl (1.7-2.5); PHOSPHORUS 4.3 mg/dl (2.5-4.9)
[2016-08-25 07:40] LABS: THYROID STIMULATING HORMONE 2.9 MIU/L (0.465-4.680)
[2016-08-25] MEDS: FAMOTIDINE 20 MG INJ IV SCH (08:59)
--- NOTE | 2016-08-25 11:41 | PN ---
Date/Time of Note Date/Time of Note DATE: 08/25/16 TIME: 11:41 Assessment/Plan VTE Prophylaxis VTE Prophylaxis Intervention: SCD's Lines/Catheters IV Catheter Type (from Nrsg): Peripheral IV Assessment/Plan Chief Complaint/Hosp Course 1. Intrauterine device perforation through the uterus with intra-abdominal presence. Continue pain control. The patient scheduled for a surgical exploration today. 2. Obesity. BMI of 32.4 kg/m. Hemoglobin A1c 5.4. Fasting lipid panel satisfactory. Weight reduction advised. 3. Fluids, electrolytes, and nutrition. N.p.o. IV fluids. 4. DVT prophylaxis. Bilateral sequential compression devices. 5. Gastrointestinal prophylaxis. Histamine 2 receptor blockers. 6. Plan. Continue pain control. Await surgical intervention. Case discussed with Dr. Kim. Problems: Subjective 24 Hr Interval Summary Free Text/Dictation Complains of nausea. Denies any vomiting. Abdominal pain well controlled with analgesics. Exam/Review of Systems Vital Signs Vitals Vital Signs Date Time Temp Pulse Resp B/P Pulse Ox O2 Delivery O2 Flow Rate FiO2 08/25/16 00:47 98.3 67 16 105/58 100 Room Air Intake and Output 08/24/16 08/24/16 08/25/16 15:00 23:00 07:00 Intake Total 1000 ml Balance 1000 ml Exam GENERAL: This is an obese female lying in bed in no apparent distress. HEENT: Head normocephalic and atraumatic. Eyes: Anicteric sclerae. Conjunctivae clear. ENT: Nasal septum is midline. Oral mucosa is dry. NECK: Supple. No JVD noticed. RESPIRATORY: Bilaterally clear to auscultation. No adventitious breath sounds heard. No use of accessory muscles of respiration. CARDIAC: Regular rate and rhythm. No murmurs heard. ABDOMEN: Soft. Tenderness to palpation in the periumbilical area. Bowel sounds are positive in all 4 quadrants. GENITOURINARY: Deferred. EXTREMITIES: No cyanosis, no clubbing, no edema. Peripheral pulses palpable. NEUROLOGIC: The patient is awake, alert and oriented. Cranial nerves are grossly intact. SKIN: No skin rash. Normal skin turgor. Results Result Diagram: 08/25/16 0523 08/25/16 0523 Results 24 hrs Laboratory Tests Test 08/24/16 12:55 08/25/16 05:23 White Blood Count 5.7 5.3 Red Blood Count 5.16 4.40 Hemoglobin 13.0 11.2 L Hematocrit 42.4 36.1 L Mean Corpuscular Volume 82.2 82.0 Mean Corpuscular Hemoglobin 25.2 L 25.5 L Mean Corpuscular Hemoglobin Concent 30.7 L 31.0 L Red Cell Distribution Width 15.1 H 15.0 H Platelet Count 239 190 # Mean Platelet Volume 11.9 H 12.0 H Neutrophils % 59.5 42.9 Lymphocytes % 32.2 47.9 Monocytes % 7.0 7.3 Eosinophils % 1.1 1.5 Basophils % 0.2 0.2 Nucleated Red Blood Cells % 0.0 0.0 Neutrophils # 3.4 2.3 Lymphocytes # 1.8 2.6 Monocytes # 0.4 0.4 Eosinophils # 0.1 0.1 Basophils # 0.0 0.0 Nucleated Red Blood Cells # 0.0 0.0 Prothrombin Time 12.2 Prothrombin Time Ratio 1.0 INR International Normalized Ratio 0.91 Activated Partial Thromboplast Time 29.5 Sodium Level 145 H 146 H Potassium Level 4.2 4.1 Chloride Level 104 110 Carbon Dioxide Level 28 25 Anion Gap 17 H 15 Blood Urea Nitrogen 8 7 Creatinine 0.65 0.88 Glucose Level 84 101 Calcium Level 9.2 8.2 L Troponin I < 0.012 Hemoglobin A1c 5.4 Phosphorus Level 4.3 Magnesium Level 2.1 Total Bilirubin 0.0 L Direct Bilirubin 0.00 Indirect Bilirubin 0.0 Aspartate Amino Transf (AST/SGOT) 18 Alanine Aminotransferase (ALT/SGPT) 31 Alkaline Phosphatase 77 Total Protein 6.2 Albumin 3.3 Globulin 2.90 Albumin/Globulin Ratio 1.13 Triglycerides Level 62 Cholesterol Level 125 LDL Cholesterol, Calculated 72 HDL Cholesterol 41 Cholesterol/HDL Ratio 3.0 Thyroid Stimulating Hormone (TSH) 2.900 Free Thyroxine 1.05 Medications Medications Current Medications Potassium Chloride/Dextrose/ Sod Cl (D5-1/2ns + KCl 20 Meq) 1,000 ml @ 100 mls/ hr Q10H IV Last administered on 08/25/16 09:02; Admin Dose 100 MLS/HR; Start 08/24/16 at 16:48 Ondansetron HCl (Zofran Inj) 4 mg Q6H PRN IV NAUSEA AND/OR VOMITING; Start at 17:00 Acetaminophen (Tylenol Tab) 650 mg Q6H PRN PO PAIN LEVEL 1-3 OR FEVER; Start at 17:00 Acetaminophen/ Hydrocodone Bitart ([place] (5/325)) 1 tab Q6H PRN PO MODERATE PAIN LEVEL 4-6; Start 08/24/16 at 17:00 Morphine Sulfate (morphine) 2 mg Q4H PRN IV SEVERE PAIN LEVEL 7-10 Last administered on 08/25/16 07:45; Admin Dose 2 MG; Start 08/24/16 at 17:00 Famotidine (Pepcid Iv) 20 mg Q12 IV Last administered on 08/25/16 08:59; Admin Dose 20 MG; Start 08/24/16 at 21:00 PRASAD MAGDALENO NP Aug 25, 2016 11:41
--- NOTE | 2016-08-25 14:49 | RADRPT ---
PROCEDURE: XR Abdomen. CLINICAL INDICATION: Foreign body. TECHNIQUE: Two views. AP supine and supine cross-table lateral. COMPARISON: CT scan of the abdomen and pelvis dated 08/19/2016. FINDINGS: There is no free air. The bowel gas pattern is normal with no evidence of obstruction. There is an IUD anteriorly in the upper pelvis. There are no abnormal calcifications overlying the urinary tracts. The osseus structures are unremarkable. IMPRESSION: 1. IUD anteriorly in the upper pelvis. 2. Otherwise unremarkable study. RPTAT: QQ .Ajit Durham MD, MD Date Time Electronically viewed and signed by .Ajit Durham MD, MD on 08/25/2016 14:49 .R/
[2016-08-25] MEDS ORDERED: LIDOCAINE 100 MG SYRINGE ONE (15:05)
[2016-08-25] MEDS ORDERED: ROCURONIUM 50 MG INJ ONE (15:05)
[2016-08-25] MEDS ORDERED: PROPOFOL 20 ML ONE (15:05)
[2016-08-25] MEDS ORDERED: MIDAZOLAM 1 MG/ML 2 ML INJ ONE (15:05)
[2016-08-25] MEDS ORDERED: DEXAMETHASONE 4 MG/ML 1 ML INJ ONE (15:06)
[2016-08-25] MEDS ORDERED: ONDANSETRON 4 MG INJ ONE ×2 (15:06→18:30)
--- NOTE | 2016-08-25 16:05 | HPN ---
Date/Time of Note Date/Time of Note DATE: 08/25/16 TIME: 14:05 Interval H&P Admission Note Pt. seen H&P reviewed: No system changes Pt. seen H&P reviewed. No system changes (I attest that I have seen and examined the patient and reviewed the operation in detail, as well as its risks , benefits and alternatives of the operation). I attest that I have seen and examined the patient and reviewed in detail the operation, and its associated risks, benefits and alternative. I have answered all the patient's questions to the best of my ability and the patient wishes to proceed. Please refer to rest of electronic medical record for additional updates. WILMER POLK M.D. Aug 25, 2016 16:05
[2016-08-25] MEDS ORDERED: BUPIVACAINE 0.25%/EPI (SDV) 30 ML INJ ONE (17:11)
[2016-08-25] MEDS ORDERED: NEOSTIGMINE 3 MG/3 ML SYRINGE ONE (17:13)
[2016-08-25] MEDS ORDERED: GLYCOPYRROLATE 0.4 MG INJ ONE (17:13)
[2016-08-25] MEDS ORDERED: CEFAZOLIN 1 GM INJ ONE (17:13)
--- NOTE | 2016-08-25 17:53 | OPR ---
[facility] INPATIENT OPERATIVE NOTE DATE OF OPERATION: 08/25/2016 PLACE OF SERVICE: [facility]. PREOPERATIVE DIAGNOSIS: 1. BMI 35.9. 2. Status post IUD placement 06/2016 with complication of intraperitoneal position, indicating perforation through the uterus POSTOPERATIVE DIAGNOSIS: 1. BMI 35.9. 2. Status post IUD placement 06/2016 with complication of intraperitoneal position, indicating perforation through the uterus OPERATION: 1. Laparoscopic removal of intrauterine device in the abdominal cavity SURGEON: Wilmer Patterson M.D. SUPERVISOR DETASSELING CREW: None ANESTHESIA: General endotracheal tube anesthesia ANESTHESIOLOGIST: Tiffani Castellon M.D. BRIEF SUMMARY: An otherwise uncomplicated laparoscopic retrieval of intrauterine device was performed. BRIEF HISTORY: The patient is a very pleasant 21-year-old lady with comorbidity of a BMI of 35.9, status post placement of an IUD device about 2 months ago that appeared to have penetrated through the uterus and was present on the CT scan that was obtained due to abdominal pain on 08/19/2016, to be in an extrauterine location within the anterior mid abdomen. I met with the patient and family and counseled them regarding the possible options of treatment, and I strongly suggested a laparoscopic exploration with the goal of removal of the IUD. We reviewed the operation in detail as well as the risks, benefits, alternatives, and expected outcomes of this operation. After careful consideration of all the risks, benefits, and alternatives, the patient and family appeared to understand those risks and wished to proceed with surgery. For a detailed report of my consultation with patient and family, please refer to my separate consultation note. STATEMENT OF THE INFORMED CONSENT: The patient and family appeared to understand the risks of the operation to include, but not be limited to risk of postoperative pain and scar tissue, possible infection or bleeding requiring other interventions such as opening the wound, placement of drainage catheters, or other operative interventions; possible injury to surrounding to structures including bowel, bladder, bile duct, or blood vessels, or solid organs such as liver, kidney, or pancreas requiring other interventions or procedures; possible leakage of bowel from anastomotic sites or suture lines causing significant increase in morbidity and mortality and requiring multiple interventions including but not limited to, placement of drainage catheters, imaging studies, as well as operative interventions; possible other source of sepsis such as urinary tract infections or pneumonias, or other sources of potentially life threatening problems such as deep venous thrombus formation causing pulmonary embolism, myocardial arrhythmias and infarctions, and even . After careful consideration of all their options, the patient and family appeared to understand and wished to proceed with surgery. OPERATIVE DETAILS: After obtaining informed consent, the patient was brought into the operating room and was placed in a normal supine position, where successful general endotracheal tube anesthesia was performed. The patient's abdominal skin was prepped and draped from the nipple line down to the level of the groins in the usual sterile fashion. We then called a surgical timeout, where patient's identification, date, nature of the operation, presence of needed equipment, and any other concerns were reviewed and agreed upon by all members of the operating room team. I then placed a 5-mm skin incision in the left lower quadrant and introduced a 5 -mm [employer] trocar into the peritoneal space, visualizing all the layers of the abdominal wall as we entered, using direct entry technique. Note that there was no indication of any injury to underlying structures. We insufflated the abdominal cavity to a maximum pressure of 15 mmHg. Initial inspection of the abdominal contents showed normal-appearing bowel without any evidence of enteric contents or pus. I then injected the umbilical site with 0.25% Marcaine with epinephrine under direct visualization and introduced another 5-mm trocar into this spot using a scalpel to go through the skin and then the trocar to go through the abdominal wall under direct visualization. With my instrument inside, I was then able to easily locate the intrauterine device, which was located in the underside of the open greater omentum. There was no bowel involvement in this region, and again, there was no issue with adhesions or evidence of any bowel perforation. After a slight amount of maneuvering, I was able to grasp the string of the IUD and then pulled it out through the umbilical 5-mm trocar without any difficulty. We sent this specimen to pathology for gross identification. We then inspected the abdominal cavity and made sure that there were no other issues prior to removal of all our equipment from the abdominal cavity, including the pneumoperitoneum, and then washing the wounds with copious amounts of normal saline and closing the skin using 4-0 Monocryl suture. Light dressing was then applied. The patient tolerated procedure without any reported complications. SPECIMENS: Intrauterine device. ESTIMATED BLOOD LOSS: 5 mL. COMPLICATIONS: None. DISPOSITION: To PACU. Dictated By: WILMER BELTRAN/SHANELL Conf#: [id number] DID#: [id number] MTDD
[2016-08-25] MEDS ORDERED: morphine (1 MG/ML) 10ML SYRINGE IV PRN ×3 (18:00)
[2016-08-25] MEDS ORDERED: ONDANSETRON 4 MG INJ IV PRN (18:00)
[2016-08-25] MEDS ORDERED: DOCUSATE SODIUM 100 MG CAP PO PRN (18:00)
[2016-08-25] MEDS ORDERED: EPHEDrine SULFATE 50 MG/5 ML SYG IV PRN (18:00)
[2016-08-25] MEDS ORDERED: HYDROCODONE/APAP (5/325) TAB PO PRN ×2 (18:00)
[2016-08-25] MEDS ORDERED: hydrALAzine 20 MG INJ IV PRN (18:00)
[2016-08-25] MEDS ORDERED: DIPHENHYDRAMINE 50 MG INJ IV PRN (18:00)
[2016-08-25] MEDS ORDERED: METOCLOPRAMIDE 10 MG INJ IV PRN (18:00)
[2016-08-25] MEDS ORDERED: MEPERIDINE 25 MG INJ IV PRN (18:00)
[2016-08-25] MEDS ORDERED: BISACODYL 10 MG SUPP PR PRN (18:00)
[2016-08-25] MEDS ORDERED: OXYCODONE/ACETAMINOPHEN (5/325) TAB PO PRN ×2 (18:00)
[2016-08-25] MEDS ORDERED: morphine 4 MG/ML VIAL ONE (18:02)
--- NOTE | 2016-08-26 10:46 | DS ---
DATE OF ADMISSION: 08/24/2016 DATE OF DISCHARGE: 08/25/2016 FINAL DIAGNOSES: 1. Intrauterine device perforation through the uterus, with intraabdominal presence. Status post laparoscopic removal by general surgery. 2. Obesity, with a BMI of 32.4 kilograms per meter squared. CONSULTATIONS: Dr. Antonio Patterson, general surgery. HOSPITAL COURSE: This is a 21-year-old female with no significant past medical history who came to the emergency room with a chief complaint of abdominal pain. The patient was last seen at [facility] Emergency Room on 08/19/2016 with abdominal pain. At that time the patient underwent a CT scan of the abdomen and pelvis that showed an intrauterine device within the anterior mid abdomen. At that time the patient was discharged home on analgesics, to be followed up with outpatient SUPERVISOR PRODUCT INSPECTION for removal of the IUD. Nevertheless, the patient had problems with getting in to see a surgeon/costume director because of insurance reasons. Hence, the patient came back to the hospital on 08/24/2016 with similar complaints, but worsening pain. Provided the patient's history of present illness and the diagnostic findings, a clinical decision was made to admit the patient to the inpatient setting to have her further evaluated. The ER physician consulted the COMPRESSOR TECHNICIAN manager of investigations, and COMPRESSOR TECHNICIAN recommended a general surgery consult. Hence, general surgery was consulted. The patient was provided with adequate pain control. The patient was taken to the OR on 08/25/2016 and the patient's displaced intrauterine device was removed laparoscopically. Post-procedure, the patient was transferred back to the medical/surgical floor. The patient was resumed on a regular consistency diet. The patient was able to tolerate the regular consistency diet without any significant gastrointestinal problems. The patient was cleared by general surgery to be discharged home. The patient was noted to have obesity with a BMI of 32.4 kilograms per meter squared. The patient's lipid panel was within normal limits. The patient's hemoglobin A1c was within normal limits. The patient was advised on weight reduction. The patient had a stable hospital course. The patient was cleared by general surgery to be discharged home. DISCHARGE MEDICATIONS: As given by general surgery. DISCHARGE DISPOSITION/PLAN: The patient will be discharged home today. The patient was instructed on a regular diet as tolerated. The patient was instructed to take her pain medications as needed. The patient was instructed to resume activities as tolerated; however, with restrictions on heavy weightbearing for at least 8 weeks. The patient verbalized understanding of her discharge instructions. CONDITION AT DISCHARGE: Stable. PERTINENT LABORATORY AND DIAGNOSTIC DATA: 1. Chest x-ray. No acute cardiopulmonary process. 2. Abdominal x-ray. Intrauterine device anteriorly in the upper pelvis. 3. Latest CBC: WBC 5.3, hemoglobin 11.9, hematocrit 36.1, platelet count 197. 4. Latest BMP: Sodium 146, potassium 4.1, chloride 110, carbon dioxide 27, anion gap 7, BUN 0.8, glucose 101, calcium 8.2. 5. Hemoglobin A1c 5.4%. 6. Fasting lipid panel: Triglycerides 66, total cholesterol 125, LDL 72, HDL 41. 7. Vitamin D level 29.1. 8. Removal of misplaced intrauterine device laparoscopically on 08/25/2016. At this time, I would like to thank Dr. Patterson for seeing this patient, doing the necessary procedures, and providing clinical recommendations. The case and management of this patient was discussed with Dr. Blum. Approximately 35 minutes was spent on coordinating the discharge on this patient. PRASAD BLUM MD, AM/SHANELL Conf#: [id number] DID#: [id number] MTDD
== END 2016-08-25 22:10 | disposition home or self-care (01) | DRG 983 ==
LOC: FTE 13:17 → PP2 16:14
PROVIDERS: ADMIT Family Medicine; ATTEND Family Medicine
PROC: 0UPD4HZ Removal of Contraceptive Device from Uterus and Cervix, Percutaneous Endoscopic Approach (ICD-10-PCS; principal; 2016-08-25 16:00)
DX: T83.89XA Other specified complication of genitourinary prosthetic devices, implants and grafts, initial encounter (principal); E66.9 Obesity, unspecified; Y84.8 Other medical procedures as the cause of abnormal reaction of the patient, or of later complication, without mention of misadventure at the time of the procedure; Y92.009 Unspecified place in unspecified non-institutional (private) residence as the place of occurrence of the external cause; Z68.32 Body mass index [BMI] 32.0-32.9, adult; D64.9 Anemia, unspecified
CPT/HCPCS: 36415; 71010; 74010; 80048; 80053; 80061; 82652; 83036; 83735; 84100; 84439; 84443; 84484; 84703; 85025; 85610; 85730; 86850; 86900; 86901; 88300; 93005; 96361; 96374; 96375; 96376; J0690; J1100; J2001; J2250; J2270; J2405; J2710; J3010; J3480; J7030

== ENCOUNTER 2016-09-14 15:53 | Outpatient (CLI) | payer OTHER ==
[~2016-09-14] VITALS: Ht 162.6 cm; Wt 85.5 kg
[2016-09-14 15:50] VITALS: BP 124/66; PULSE 83; RESP 16; Ht 162.6 cm; Wt 85.5 kg
--- NOTE | 2016-09-14 17:17 | PN ---
Date/Time of Note Date/Time of Note DATE: 09/14/16 TIME: 17:11 Assessment/Plan Assessment/Plan Assessment/Plan [facility] Progress Note Date of Service: 09/14/16 Today's Impression & Plan: Overall doing well post op without major issues. No major wound problems. With above assessment, I've recommended the following for today: 1. F/u with PCP 2. F/u with us prn Thank you again for your great care of this very pleasant patient and wonderful family. If there are any questions, please feel free to call me at [phone]. TOTAL VISIT TIME: 20 minutes of which more than half was spent in [id number] discussion with the patient, possibly including family, as well as coordination of care between multiple physicians and providers. Disclaimer: Inadvertent spelling or grammatical errors are likely due to EHR/ dictation software use and do not reflect on the overall quality of patient care. Updated Clinical Summary: A very pleasant 21-year-old lady with comorbidity of a BMI of 35.9, status post placement of an IUD device about Jun 2016 that appeared to have penetrated through the uterus and was present on the CT scan that was obtained in ED at [facility] due to abdominal pain on 08/19/2016, to be in an extrauterine location within the anterior mid abdomen. S/p an otherwise uncomplicated laparoscopic retrieval of intrauterine device on 08/25/2016. Comorbidities: 1. BMI 35.9. 2. S/p IUD placement 06/2016 with complication of intraperitoneal position, indicating perforation through the uterus 3. S/p an otherwise uncomplicated laparoscopic retrieval of intrauterine device on 08/25/2016. Subjective: No major events or complaints; no abd pain and not on pain medications; no n/v/d ; no sob or cp; + flatus; + BM and normal; + activity Objective: Vitals: See below Exam: GENERAL: On exam, the patient was sitting in a chair and appeared to be comfortable and in no acute distress. ABDOMEN: Soft, nontender and nondistended. Incisions are clean, dry and intact without any evidence of erythema, edema, discharge, or hernia. There are no peritoneal signs or guarding. SKIN: Skin appears to be pink and feels warm to touch. NEUROLOGIC: Patient is awake, alert, and follows commands appropriately. Exam/Review of Systems Vital Signs Vitals Vital Signs Date Time Temp Pulse Resp B/P Pulse Ox O2 Delivery O2 Flow Rate FiO2 09/14/16 15:50 98.4 83 16 124/66 99 Room Air WILMER POLK M.D. Sep 14, 2016 17:17
== END 2016-09-14 16:58 | disposition home or self-care (01) ==
LOC: HPC 15:53
PROVIDERS: ATTEND Transplant Surgery
DX: T83.89XD Other specified complication of genitourinary prosthetic devices, implants and grafts, subsequent encounter (principal); Y76.1 Therapeutic (nonsurgical) and rehabilitative obstetric and gynecological devices associated with adverse incidents
CPT/HCPCS: G0463

== ENCOUNTER 2017-03-06 11:33 | Emergency (ER) | payer OTHER ==
[~2017-03-06] VITALS: Wt 84.5 kg
[2017-03-06] MEDS ORDERED: ONDANSETRON 4 MG INJ IV STA (12:30)
[2017-03-06] MEDS ORDERED: ONDANSETRON (ODT) 4 MG TAB ODT STA (12:46)
[2017-03-06 12:58] LABS: BASOPHILS % 0.7 % (0.0-2.0); EOSINOPHILS # 0.1 10^3/ul (0.0-0.5); EOSINOPHILS % 0.8 % (0.0-7.0); HEMATOCRIT 39.3 % (37.0-47.0); HEMOGLOBIN 12.6 g/dl (12.0-16.0); LYMPHOCYTES # 2.2 10^3/ul (0.8-2.9); LYMPHOCYTES % 36.2 % (15.0-51.0); MEAN CORPUSCULAR HEMOGLOBIN 25.9 pg (29.0-33.0); MEAN CORPUSCULAR HGB CONC 32.1 g/dl (32.0-37.0); MEAN CORPUSCULAR VOLUME 80.9 fl (82.0-101.0); MEAN PLATELET VOLUME 11.5 fl (7.4-10.4); MONOCYTE # 0.6 10^3/ul (0.3-0.9); MONOCYTES % 9.8 % (0.0-11.0); NEUTROPHIL # 3.2 10^3/ul (1.6-7.5); NEUTROPHILS % 52.3 % (39.0-77.0); PLATELET COUNT 201 10^3/UL (140-415); RED BLOOD COUNT 4.86 10^6/ul (4.20-5.40); RED CELL DISTRIBUTION WIDTH 14.3 % (11.5-14.5); WHITE BLOOD COUNT 6.1 10^3/ul (4.8-10.8)
[2017-03-06 13:05] LABS: ADD UMIC NO; UR ASCORBIC ACID NEGATIVE (NEGATIVE); UR BILIRUBIN (Dip) NEGATIVE (NEGATIVE); UR BLOOD (Dip) NEGATIVE (NEGATIVE); UR CLARITY CLEAR (CLEAR); UR COLOR STRAW (YELLOW); UR GLUCOSE (Dip) NEGATIVE (NEGATIVE); UR KETONES (Dip) NEGATIVE (NEGATIVE); UR LEUKOCYTE ESTERASE (Dip) NEGATIVE Leu/ul (NEGATIVE); UR NITRITE (Dip) NEGATIVE (NEGATIVE); UR SPECIFIC GRAVITY (Dip) 1.004 (1.003-1.030); UR TOTAL PROTEIN (Dip) NEGATIVE (NEGATIVE); UR UROBILINOGEN (Dip) NEGATIVE (NEGATIVE)
[2017-03-06 13:15] LABS: ALBUMIN 4.2 g/dl (3.3-4.9); ALBUMIN/GLOBULIN RATIO 1.05; BILIRUBIN,INDIRECT 0.1 mg/dl (0-1.1); BILIRUBIN,TOTAL 0.1 mg/dl (0.2-1.3); CALCIUM 9.3 mg/dl (8.4-10.2); CREATININE 0.64 mg/dl (0.44-1.00); POTASSIUM 3.9 mmol/L (3.5-5.1); TOTAL PROTEIN 8.2 g/dl (6.1-8.1)
--- NOTE | 2017-03-06 15:04 | RADRPT ---
PROCEDURE: CT Abdomen and Pelvis without contrast CLINICAL INDICATION: Abdominal pain TECHNIQUE: Transaxial images were obtained through the abdomen and pelvis on a multi-slice scanner without the intravenous contrast administration. No oral contrast had previously been given. Sagit wale and coronal re-formations were subsequently reconstructed. One or more of the following dose reduction techniques were used: - Automated exposure control. - Adjustment of the mA and/or kV according to patient size. - Use of iterative reconstruction technique. Radiation dose: CTDIvol = 14.31 mGy; DLP = 819.43 mGy-cm. COMPARISON: 08/19/2016 FINDINGS: Lung bases: The visualized lung bases appear unremarkable. Liver: The liver is borderline enlarged but no focal lesion is evident. Gallbladder: The wall is not thickened. No radiopaque stones are identified. Bile ducts: The intra and extrahepatic bile ducts are normal in caliber. Pancreas: Appears normal with no mass or inflammation evident. Spleen: Normal in size with no focal lesion. Adrenals: Normal with no mass identified. Kidneys, ureters and bladder: The kidneys are normal in size and there is no mass, pathological calc ification, or hydronephrosis evident. There is no perinephric stranding. The ureters are normal in c aliber and no ureteroliths are identified. The bladder appears unremarkable. Reproductive organs: The uterus deviates slightly to the left of midline. No adnexal mass is evident . Stomach and bowel: The stomach and bowel appear unremarkable without evidence of bowel obstruction o r inflammation. Appendix: A normal-appearing retrocecal vermiform appendix is evident. Peritoneum: No free intraperitoneal fluid or air is identified. Aorta: Normal in caliber with no aneurysmal dilatation. IVC: Unremarkable. Lymph nodes: No pathologically enlarged nodes are identified. Osseous structures: The osseous elements appear intact. IMPRESSION: 1. Since the previous CT of 08/19/2016, the extrauterine, intraperitoneal IUD is no longer identifi ed. 2. Otherwise, stable and unremarkable non-enhanced CT scan of the abdomen and pelvis. Physician Art Date Time Electronically viewed and signed by Physician Art on 03/06/2017 15:03 RH/
[2017-03-06] MEDS ORDERED: IBUP-1542 PO (15:20)
[2017-03-06] MEDS ORDERED: AZIT500T3 PO (15:20)
[2017-03-06] MEDS ORDERED: BISM262O23 PO (15:20)
--- NOTE | 2017-03-06 15:29 | ERD ---
ER Documentation Chief Complaint Date/Time DATE: 03/06/17 TIME: 15:26 Chief Complaint AP X 4 DAYS HPI 21-year-old female presents with diarrhea and lower abdominal pain for the last 4 days. She points to the area to the right of her umbilicus. She had fevers as well. She denies vomiting although she has nausea. History significant for intraperitoneal IUD removed approximately 6 months ago. Denies any vaginal discharge or dysuria. ROS All systems reviewed and are negative except as per history of present illness. Medications Home Meds Active Scripts Bismuth Subsalicylate* (Pepto-Bismol*) 262 Mg/15 Ml Oral.susp, 15 ML PO Q3H Y for DIARRHEA for 4 Days, ML Prov:KEHINDE OLIVAS MD 03/06/17 Azithromycin* (Zithromax*) 500 Mg Tablet, 500 MG PO DAILY for 3 Days, TAB Prov:KEHINDE OLIVAS MD 03/06/17 Ibuprofen* (Motrin*) 600 Mg Tab, 600 MG PO Q6, #15 TAB Prov:KEHINDE OLIVAS MD 03/06/17 Allergies Allergies: Coded Allergies: No Known Allergy (Unverified , 08/24/16) PMhx/Soc Medical and Surgical Hx: pt denies Medical Hx, pt denies Surgical Hx History of Surgery: No Anesthesia Reaction: No Hx Neurological Disorder: No Hx Respiratory Disorders: No Hx Cardiac Disorders: No Hx Psychiatric Problems: No Hx Miscellaneous Medical Probl: No Hx Alcohol Use: No Hx Substance Use: No Hx Tobacco Use: No Smoking Status: Never smoker Physical Exam Vitals Vital Signs Date Time Temp Pulse Resp B/P Pulse Ox O2 Delivery O2 Flow Rate FiO2 03/06/17 11:36 98.1 86 18 147/77 99 Physical Exam Const: [] Alert, [id number] per Head: Atraumatic Eyes: Normal Conjunctiva ENT: Normal External Ears, Nose and Mouth. Neck: Full range of motion..~ No meningismus. Resp: Clear to auscultation bilaterally Cardio: Regular rate and rhythm, no murmurs Abd: Soft, mildly tender in the lower abdomen on the right side. No rebound. No Vargas sign., non distended. Normal bowel sounds Skin: No petechiae or rashes Back: No midline or flank tenderness Ext: No cyanosis, or edema Neur: Awake and alert Psych: Normal Mood and Affect Result Diagram: 03/06/17 1240 03/06/17 1240 Results 24 hrs Laboratory Tests Test 03/06/17 12:40 White Blood Count 6.110^3/ul Red Blood Count 4.8610^6/ul Hemoglobin 12.6g/dl Hematocrit 39.3% Mean Corpuscular Volume 80.9fl Mean Corpuscular Hemoglobin 25.9pg Mean Corpuscular Hemoglobin Concent 32.1g/dl Red Cell Distribution Width 14.3% Platelet Count 40389^3/UL Mean Platelet Volume 11.5fl Neutrophils % 52.3% Lymphocytes % 36.2% Monocytes % 9.8% Eosinophils % 0.8% Basophils % 0.7% Nucleated Red Blood Cells % 0.0/100WBC Neutrophils # 3.210^3/ul Lymphocytes # 2.210^3/ul Monocytes # 0.610^3/ul Eosinophils # 0.110^3/ul Basophils # 0.010^3/ul Nucleated Red Blood Cells # 0.010^3/ul Urine Color STRAW Urine Clarity CLEAR Urine pH 8.0 Urine Specific [place] 1.004 Urine Ketones NEGATIVEmg/dL Urine Nitrite NEGATIVEmg/dL Urine Bilirubin NEGATIVEmg/dL Urine Urobilinogen NEGATIVEmg/dL Urine Leukocyte Esterase NEGATIVELeu/ul Urine Hemoglobin NEGATIVEmg/dL Urine Glucose NEGATIVEmg/dL Urine Total Protein NEGATIVEmg/dl Sodium Level 141mmol/L Potassium Level 3.9mmol/L Chloride Level 105mmol/L Carbon Dioxide Level 29mmol/L Anion Gap 11 Blood Urea Nitrogen 5mg/dl Creatinine 0.64mg/dl Glucose Level 93mg/dl Calcium Level 9.3mg/dl Total Bilirubin 0.1mg/dl Direct Bilirubin 0.00mg/dl Indirect Bilirubin 0.1mg/dl Aspartate Amino Transf (AST/SGOT) 18IU/L Alanine Aminotransferase (ALT/SGPT) 34IU/L Alkaline Phosphatase 97IU/L Total Protein 8.2g/dl Albumin 4.2g/dl Globulin 4.00g/dl Albumin/Globulin Ratio 1.05 Lipase 115U/L Current Medications Medications (Trade) Dose Ordered Sig/Ji Route PRN Reason Start Time Stop Time Status Last Admin Dose Admin Ondansetron HCl (Zofran Inj) 4 mg ONCE STAT IV 03/06/17 12:30 03/06/17 12:32 DC Ondansetron HCl (Zofran Odt) 8 mg ONCE STAT ODT 03/06/17 12:46 03/06/17 12:47 DC 03/06/17 12:51 Procedures/MDM Urine is negative. HCG negative. CBC normal and CMP normal. She given Zofran 8 mg by mouth and ibuprofen 600 mg of mouth. Given the uncertain cause of lower abdominal pain which was persistent on serial exam CT abdomen pelvis noncontrast was performed shows no acute findings. Patient currently has no signs or symptoms of appendicitis, ovarian torsion, UTI, tubo-ovarian abscess, acute abdomen. She will be treated for infectious diarrhea with Zithromax for pain with ibuprofen and Pepto-Bismol for diarrhea and primary care follow-up and return precautions. The patient was stable with no new complaints during the ER course. Clinically, there is no current evidence to suggest meningitis, sepsis, acute abdomen, pneumonia, acute coronary syndrome, pulmonary embolism, or any other emergent condition appearing to require further evaluation or hospitalization. The patient should certainly return for any new or worsening symptoms per the aftercare instructions. They should otherwise follow-up with her primary care doctor for reevaluation this week. Departure Diagnosis: Primary Impression: Diarrhea Diarrhea type: unspecified type Qualified Code: R19.7 - Diarrhea, unspecified type Additional Impression: Abdominal pain Abdominal location: unspecified location Qualified Code: R10.9 - Abdominal pain, unspecified abdominal location Condition: Stable Patient Instructions: Abdominal Pain, Vomiting And Diarrhea, Nonspecific (Adult ) Additional Instructions: Recheck for new or worsening symptoms with primary care doctor. Examinations normal today. KEHINDE OLIVAS MD Mar 06, 2017 15:29
[2017-03-06] MEDS ORDERED: IBUPROFEN 600 MG TAB PO ONE (15:30)
== END 2017-03-06 15:36 | disposition home or self-care (01) ==
LOC: FTE 11:33
DX: R10.31 Right lower quadrant pain (principal); R19.7 Diarrhea, unspecified
CPT/HCPCS: 36415; 74176; 80053; 81003; 83690; 85025; Z7502; Z7610

== ENCOUNTER 2017-05-18 09:10 | Emergency (ER) | payer OTHER ==
[~2017-05-18] VITALS: Ht 160 cm; Wt 82.6 kg
[~2017-05-18 09:10] MED LIST changes: +AZIT500T3 PO; +BISM262O23 PO; -HYDR-906 PO; -ONDA4TAB14 PO; -PREN-39 PO
[2017-05-18 09:21] VITALS: Ht 160 cm; Wt 82.6 kg
--- NOTE | 2017-05-18 10:40 | ERD ---
ER Documentation Chief Complaint Chief Complaint ap cramping n/v/d HPI 21-year-old female complaining of lower abdominal pain 3 days. She started having diarrhea yesterday. Patient described abdominal pain as a constant soreness with on and off intense cramps. The cramps dysuria associated with diarrhea, and better after the diarrhea. She has slight cough with feeling of tightness in her throat. Denies shortness of breath. Denies fever or chills. She reports nausea, but denies vomiting. ROS All systems reviewed and are negative except as per history of present illness. Medications Home Meds Active Scripts Bismuth Subsalicylate* (Pepto-Bismol*) 262 Mg/15 Ml Oral.susp, 15 ML PO Q3H Y for DIARRHEA for 4 Days, ML Prov:KEHINDE OLIVAS MD 03/06/17 Azithromycin* (Zithromax*) 500 Mg Tablet, 500 MG PO DAILY for 3 Days, TAB Prov:KEHINDE OLIVAS MD 03/06/17 Ibuprofen* (Motrin*) 600 Mg Tab, 600 MG PO Q6, #15 TAB Prov:KEHINDE OLIVAS MD 03/06/17 Allergies Allergies: Coded Allergies: No Known Allergy (Unverified , 08/24/16) PMhx/Soc History of Surgery: No Anesthesia Reaction: No Hx Neurological Disorder: No Hx Respiratory Disorders: No Hx Cardiac Disorders: No Hx Psychiatric Problems: No Hx Miscellaneous Medical Probl: No Hx Alcohol Use: No Hx Substance Use: No Hx Tobacco Use: No Smoking Status: Never smoker Physical Exam Vitals Vital Signs Date Time Temp Pulse Resp B/P Pulse Ox O2 Delivery O2 Flow Rate FiO2 05/18/17 09:21 98.0 91 18 128/73 100 Physical Exam General: Well-developed, well-nourished, conscious and coherent, in no distress Skin: Warm and dry without rash, good texture and turgor Head: Normocephalic without evidence of trauma Eyes: Sclera and conjunctivae normal; pupils equal, round, and reactive to light; extraocular movements are intact Ears: Canals are patent. Tympanic membranes are clear Nose/Face: Without rhinorrhea Mouth/throat: Mucous membranes are moist. Posterior pharynx clear without erythema or exudates Neck: Supple without meningismus or adenopathy. Carotids are equal. Trachea midline. No bruits or JVD Chest: Normal AP diameter. Good expansion without retractions. Nontender. Lungs are clear to auscultate bilaterally with good tidal volume Heart: Regular rate and rhythm. No murmur, rub, or gallops heard Abdomen: Soft, lower abdomen diffusely tender without masses, guarding, or rebound. No McBurney point tenderness. Negative Vargas sign. No epigastric tenderness. Bowel sounds are hyperactive. No hepatosplenomegaly Back: Without spinal or CVA tenderness Extremities: Full range of motion. Good strength bilaterally. No clubbing, cyanosis, or edema. Peripheral pulses are intact. Sensation intact Neuro: Alert and oriented 4, GCS 15. Cranial nerves grossly intact. Motor and sensory exams nonfocal. Moves all extremities. Speech clear. Gait normal Procedures/MDM Patient is afebrile, does not have any right lower quadrant or right upper quadrant tenderness on palpation. I doubt acute appendicitis, cholecystitis or other acute abdomen. Patient's symptoms is consistent with viral illness. Patient does not have any active vomiting, is able to maintain by mouth fluid intake. Patient appears well, stable for discharge and outpatient management. Medical decision making shared with patient and family. Education provided to patient and family regarding increase fluid intake and eat a bland diet for next several days.. Patient and family expressed understanding of the plan. Medications on discharge: None. Follow-up: Primary care provider in 2-3 days or return to ED if worse. Disclaimer: Inadvertent spelling and grammatical errors are likely due to EHR/ dictation software use and do not reflect on the overall quality of patient care. Also, please note that the electronic time recorded on this note does not necessarily reflect the actual time of the patient encounter. Departure Diagnosis: Primary Impression: Diarrhea Diarrhea type: presumed infectious Qualified Code: A09 - Diarrhea of presumed infectious origin Condition: Stable Patient Instructions: Treating Diarrhea Additional Instructions: Call your primary care doctor TOMORROW for an appointment during the next 2-3 days.See the doctor sooner or return here if your condition worsens before your appointment time. NAVEEN GRANDE NP May 18, 2017 10:40
== END 2017-05-18 10:43 | disposition home or self-care (01) ==
LOC: FTE 09:10
DX: A09 Infectious gastroenteritis and colitis, unspecified (principal)
CPT/HCPCS: 99282